=== PATIENT | female | born 1950 | race Caucasian/White ===

== ENCOUNTER 2017-02-22 14:56 | Inpatient (IN) | payer MEDICARE, MEDICAID ==
[~2017-02-22] VITALS: Ht 160 cm; Wt 74.8 kg
[2017-02-22] MEDS ORDERED: VENL75CA62 PO (15:01)
[2017-02-22] MEDS ORDERED: GABA-534 PO (15:01)
[2017-02-22] MEDS ORDERED: OLME20TA15 PO (15:01)
[2017-02-22] MEDS ORDERED: PARO30TA3 PO (15:01)
[2017-02-22] MEDS ORDERED: LORA1TAB PO (15:01)
[2017-02-22] MEDS ORDERED: OLAN7.5T3 PO (15:01)
[2017-02-22] MEDS: clonazePAM 0.5 MG TABLET PO PRN (15:44)
--- NOTE | 2017-02-22 15:47 | NUR ---
GPS RN: ADMINISTERED KLONOPIN 0.5MG FOR C/O ANXIETY
[2017-02-22 16:00] VITALS: BP 123/80
[2017-02-22] MEDS ORDERED: ACETAMINOPHEN 325 MG TABLET PO PRN (16:00)
[2017-02-22] MEDS ORDERED: MAGNESIUM HYDROXIDE 30 ML UDC PO PRN (16:00)
[2017-02-22] MEDS ORDERED: MAG HYDROX/AL HYDROX/SIMETH 30 ML UDC PO PRN (16:00)
--- NOTE | 2017-02-22 16:04 | NUR ---
GPS/RN PATIENT ADMITTED ON A 5150 HOLD FOR DTS UNDER THE CARE OF DR SIDHU AND DR PEREZ. PER HOLD PATIENT WAS VOICING SUICIDAL IDEATION STATING THAT SHE WANTED TO END HER LIFE WITH AN OVERDOSE OF MEDICATIONS. UPON FACE TO FACE ASSESSMENT PATIENT IS ALERT X 3, STABLE CONDITION, BLUNTED AFFECT, STATING THAT SHE IS VERY DEPRESSED BUT DENIES SI AT THIS TIME. PATIENT IS CALM AND COOPERATIVE WITH STAFF, NO DISTRESS NOTED, ALL NEEDS ATTENDED, WILL CONTINUE TO MONITOR Q 15 [place] FOR SAFETY AND BEHAVIOR.
[2017-02-22 16:22] VITALS: BP 109/59
[2017-02-22] MEDS: GABAPENTIN 300 MG CAPSULE PO SCH (17:14)
[2017-02-22] MEDS: VENLAFAXINE XR 75 MG CAP.SR.24H PO SCH (17:14)
--- NOTE | 2017-02-22 19:30 | NUR ---
GPS RN NOTE, RECEIVED PATIENT AWAKE, SITTING UP IN A CHAIR IN THE ACTIVITY ROOM. STABLE. PATIENT IS ALERT AND ORIENTED X 3. AMBULATORY. VERBALLY RESPONSIVE. PATIENT DENIES SUICIDE IDEATIONS AT THIS TIME. DENIES ANY PAIN OR DISCOMFORT AT THIS TIME. ALL NEEDS ATTENDED. SAFETY PRECAUTIONS OBSERVED. WILL CONTINUE TO MONITOR.
[2017-02-22 20:00] VITALS: BP 141/85
[2017-02-22] MEDS: OLANZAPINE 5 MG TABLET PO SCH (21:44)
[2017-02-23] MEDS: clonazePAM 0.5 MG TABLET PO PRN ×3 (06:00→23:14)
[2017-02-23 07:03] LABS: ALBUMIN 3.7 g/dL (3.4-5.0); BILIRUBIN,TOTAL 0.7 mg/dL (0.2-1.0); CALCIUM, SERUM 9.1 mg/dL (8.5-10.1); CREATININE 0.9 mg/dL (0.6-1.3); POTASSIUM 3.9 mmol/L (3.5-5.1); TOTAL PROTEIN, SERUM 7.3 g/dL (6.4-8.2)
[2017-02-23 08:00] VITALS: BP 127/73
[2017-02-23] MEDS: LOSARTAN POTASSIUM 25 MG TABLET PO SCH (08:22)
[2017-02-23] MEDS: PAROXETINE HCL 10 MG TABLET PO SCH (08:22)
[2017-02-23] MEDS: VENLAFAXINE XR 75 MG CAP.SR.24H PO SCH (08:22)
[2017-02-23] MEDS: GABAPENTIN 300 MG CAPSULE PO SCH ×2 (08:22→16:15)
--- NOTE | 2017-02-23 09:24 | NUR ---
BOX STACKER-NOTES DR. PEREZ SEEN THE PATIENT AND MADE AWARE OF PATIENT LABS. RESULT WITH THE ORDER TO ENCOURAGE PATIENT TO INCREASED P.O FLUID.
[2017-02-23 16:00] VITALS: BP 132/88
--- NOTE | 2017-02-23 17:10 | NUR ---
Patient lives at home alone [address] [place] [address]. [address] [place] [phone] ([phone]). Patient stated that she wanted to return home upon discharge. sheet metal worker supervisor attempted to contact patient's son ([phone]) However, he was unavailable. sheet metal worker supervisor left a voicemail with her contact information and will attempt again later. Patient will help form a safe and proper discharge plan.
--- NOTE | 2017-02-23 18:44 | NUR ---
HEALTH EDUCATION SPECIALIST-NOTS PATIENT STATED" I'M VERY ANXIOUS,I DON'T KNOW WHAT TO DO", REDIRECTED PATIENT AND OFFERED KLONOPIN AND AGREED. KLONOPIN 0.5MG P.O GIVEN PRN ORDER. WILL CONT. MONITORING FOR SAFETY.
--- NOTE | 2017-02-23 19:30 | NUR ---
RN OPENING NOTES RECEIVED REPORT FROM JACKIE MEDINA RN. FOUND Pt RESTING IN BED AWAKE. Pt IS A/OX3, AMBULATORY, & MED COMPLIANT. NO S/S OF ACUTE DISTRESS OR SOB NOTED. NO C/O PAIN. REQUESTED TO TAKE NIGHT MEDS A LITTLE EARLIER SO SHE CAN GO TO BED AND GET SOME REST. Pt ALSO REQUESTED SLEEPING PILL. SAFETY MEASURES IN PLACE. BED LOW, LOCKED, HOB ELEVATED, SIDE RAILS UP. WILL CONTINUE TO MONITOR Pt THROUGHOUT THE SHIFT FOR SAFETY.
[2017-02-23 20:00] VITALS: BP 132/85
[2017-02-23] MEDS: OLANZAPINE 5 MG TABLET PO SCH (21:27)
[2017-02-23] MEDS: TEMAZEPAM 15 MG CAPSULE PO PRN (21:27)
--- NOTE | 2017-02-23 21:30 | NUR ---
RN NOTES GAVE RESTORIL 15MG PER Pt REQUEST TO HELP HER SLEEP AT NIGHT.
[2017-02-23 22:00] VITALS: BP 132/85
--- NOTE | 2017-02-23 23:15 | NUR ---
RN NOTES ADMINISTERED PRN KLONOPIN 0.5MG PER Pt REQUEST DUE TO ANXIETY.
[2017-02-24] MEDS: clonazePAM 0.5 MG TABLET PO PRN ×3 (04:38→18:00)
--- NOTE | 2017-02-24 04:38 | NUR ---
RN NOTES ADMINISTERED PRN KLONOPIN 0.5MG PER Pt REQUEST DUE TO ANXIETY; Pt WAS HAVING TROUBLE SLEEPING.
--- NOTE | 2017-02-24 06:29 | NUR ---
RN CLOSING NOTES NO SIGNIFICANT CHANGES DURING THE NIGHT. NO S/S OF ACUTE DISTRESS OR SOB NOTED. ALL NEEDS MET AND ATTENDED TO. SAFETY MEASURES CARRIED OUT. WILL ENDORSE TO DAYSHIFT RN FOR Pt's JOBY.
[2017-02-24 08:00] VITALS: BP 119/68
[2017-02-24] MEDS: GABAPENTIN 300 MG CAPSULE PO SCH ×2 (08:09→16:17)
[2017-02-24] MEDS: PAROXETINE HCL 10 MG TABLET PO SCH (08:09)
[2017-02-24] MEDS: LOSARTAN POTASSIUM 25 MG TABLET PO SCH (08:10)
[2017-02-24] MEDS: VENLAFAXINE XR 75 MG CAP.SR.24H PO SCH (08:10)
--- NOTE | 2017-02-24 10:25 | NUR ---
GPS RN: PATIENT NOTED TO BE ANXIOUS, ASKING FOR MEDICATION TO HELP HER CALM DOWN. KLONOPIN 0.5MG ADMINISTERED PO ORDERED. VS STABLE, CONTINUE TO MONITOR.
--- NOTE | 2017-02-24 18:01 | NUR ---
GPS RN: PATIENT C/O INCREASED ANXIETY AND ASKING FOR MEDICATION TO HELP HER CALM DOWN. ADMINISTERED CLONAZEPAM 0.5MG PO ORDERED. PROVIDED WITH CALM AND SAFE ENVIRONMENT. INSTRUCTED ON RELAXATION TECHNIQUE. PATIENT VERBALIZED UNDERSTANDING, WALKING IN THE HALLWAY. NO S/S OF PHYSICAL DISTRESS, VS STABLE, CONTINUE TO MONITOR THE PATIENT.
--- NOTE | 2017-02-24 19:30 | NUR ---
GPS RN NOTE, RECEIVED PATIENT AWAKE AND IN BED, NO S/S OR COMPLAINTS OF PAIN AT THIS TIME. PATIENT IS DISPLAYING NO S/S OF APPARENT DISTRESS AT THIS TIME. PATIENT BREATHING IS UNLABORED WITH EQUAL RISE AND FALL OF THE CHEST. PATIENT IS ALERT AND ORIENTED X 3-4 ON ROOM AIR WITH A SPO2 96%. PATIENT COMPLIANT WITH MEDICATION, DEPRESSED, COOPERATIVE, PARANOID, GUARDED, ANXIOUS, AND NEEDS REORIENTATION. PATIENT DENIES SUICIDE AND HOMICIDAL IDEATIONS AT THIS TIME. PATIENT ASSISTED WITH TURNING AND REPOSITIONING Q2HR AND PRN FOR COMFORT AND CIRCULATION. PATIENT HAS NO NEEDS AT THIS TIME. PATIENT EDUCATED ON THE USE OF THE CALL WINTER. PATIENT BED SIDE RAILS UP X2 FOR SAFETY, BED IS LOCKED AND LOW WILL CONTINUE TO MONITOR AND MAINTAIN SAFETY.
[2017-02-24 20:00] VITALS: BP 120/80
[2017-02-24] MEDS: OLANZAPINE 5 MG TABLET PO SCH (21:21)
[2017-02-24] MEDS: TEMAZEPAM 15 MG CAPSULE PO PRN (22:20)
--- NOTE | 2017-02-24 22:20 | NUR ---
GPS RN NOTE, PATIENT HAS A COMPLAINT OF NOT BEING ABLE TO SLEEP AND WOULD LIKE A SLEEPING AID AT THIS TIME. PATIENT VITAL SIGNS ARE STABLE. GAVE RESTORIL 15 MG PO HS ORDERED. WILL REASSESS FOR INSOMNIA AND I WILL CONTINUE TO MONITOR THIS PATIENT.
[2017-02-25] MEDS: clonazePAM 0.5 MG TABLET PO PRN ×3 (04:35→16:46)
--- NOTE | 2017-02-25 04:35 | NUR ---
GPS RN NOTE, PATIENT HAS A COMPLAINT OF FEELING ANXIOUS AND WOULD LIKE MEDICATION AT THIS TIME. PATIENT VITAL SIGNS ARE STABLE. GAVE KLONOPIN 0.5MG PO Q4HR PRN ORDERED. WILL REASSESS FOR ANXIETY AND I WILL CONTINUE TO MONITOR THIS PATIENT.
[2017-02-25 08:00] VITALS: BP 115/80
[2017-02-25] MEDS: PAROXETINE HCL 10 MG TABLET PO SCH (08:22)
[2017-02-25] MEDS: VENLAFAXINE XR 75 MG CAP.SR.24H PO SCH (08:22)
[2017-02-25] MEDS: LOSARTAN POTASSIUM 25 MG TABLET PO SCH (08:23)
[2017-02-25] MEDS: GABAPENTIN 300 MG CAPSULE PO SCH ×2 (10:23→16:21)
--- NOTE | 2017-02-25 14:33 | NUR ---
GPS RN: ADMINISTERED MOM 30ML PO FOR C/O CONSTIPATION.
[2017-02-25 16:08] VITALS: BP 121/83
--- NOTE | 2017-02-25 16:47 | NUR ---
GPS RN: CLONAZEPAM 0.5MG PO ORDERED FOR C/O INCREASED ANXIETY. VS STABLE. CONTINUE TO MONITOR.
--- NOTE | 2017-02-25 19:00 | NUR ---
GPS RN OPENING NOTES: RECEIVED PT AWAKE AND IS WALKING AROUND INTERACTING WITH HER AM NURSE. NO S/S OR COMPLAINTS OF PAIN AT THIS TIME. PT IS DISPLAYING NO S/S OF APPARENT DISTRESS AT THIS TIME. PT BREATHING IS UNLABORED W/ EQUAL RISE AND FALL OF THE CHEST. PT IS A/O X 3 ON ROOM AIR WITH SPO2 95%. PT IS MED COMPLIANT. PT DENIES SUICIDE IDEATIONS OR HOMICIDAL IDEATIONS AT THIS TIME. PT HAS NO NEEDS AT THIS TIME. PT EDUCATED ON THE USE OF THE CALL WINTER. SIDE RAILS X2 UP FOR SAFETY. BED KEPT IN LOCKED AND LOWEST POSITION. WILL CONTINUE TO MONITOR AND MAINTAIN SAFETY.
[2017-02-25 20:46] VITALS: BP 138/80
[2017-02-25] MEDS: OLANZAPINE 5 MG TABLET PO SCH (21:12)
[2017-02-26] MEDS: TEMAZEPAM 15 MG CAPSULE PO PRN (02:39)
--- NOTE | 2017-02-26 02:39 | NUR ---
GPS RN NOTES: PT GOT OUT OF BED AND REQUESTED FOR A SLEEP AID. PT RECEIVED RESTORIL PO. WILL CONTINUE TO MONITOR PT.
[2017-02-26] MEDS: clonazePAM 0.5 MG TABLET PO PRN (06:08)
--- NOTE | 2017-02-26 06:08 | NUR ---
GPS RN NOTE: PT WALKED OUT OF ROOM AND REPORTED THAT SHE WAS HAVING ANXIETY AND WOULD LIKE HER KLONOPIN. PT RECEIVED KLONOPIN. WILL CONTINUE TO MONITOR PT.
--- NOTE | 2017-02-26 06:58 | NUR ---
GPS CLOSING NOTES: ALL NEEDS WERE ATTENDED AND ANTICIPATED FOR. PT IS IN BED ASLEEP AFTER GETTING HER KLONOPIN. CALL WINTER WITHIN REACH. BED KEPT IN LOCKED, LOWEST POSITION, AND SIDE RAILS X 2 UP. WILL ENDORSE TO AM NURSE FOR JOBY.
[2017-02-26 08:00] VITALS: BP 126/73
[2017-02-26] MEDS: PAROXETINE HCL 10 MG TABLET PO SCH (08:58)
[2017-02-26] MEDS: GABAPENTIN 300 MG CAPSULE PO SCH (08:58)
[2017-02-26] MEDS: LOSARTAN POTASSIUM 25 MG TABLET PO SCH (08:59)
[2017-02-26] MEDS: VENLAFAXINE XR 75 MG CAP.SR.24H PO SCH (08:59)
[2017-02-26] MEDS ORDERED: LITHIUM CARBONATE 150 MG CAPSULE PO SCH (10:30)
[2017-02-26 16:27] VITALS: BP 130/70
--- NOTE | 2017-02-26 16:33 | NUR ---
Discharge Note: Patient will be discharged back [address] [place] [address] ([phone]). Patient's son Joel Alford ([phone]) has been notified and will pick her up via private vehicle. Both patient and patient's son are agreeable with the discharge plan. Patient is calm and cooperative. Patient's mood and affect are appropriate. Patient denies suicidal and homicidal ideations. Patient agreed to follow-up with her psychiatrist Dr. Whittaker within 30 days. grain farmworker also referred patient to [facility] [address] [facility] [address] ([phone]). Facilitated info to IDT team who are in agreement with discharge arrangement. The multidisciplinary exitcare form was done, printed, signed, and given to the patient.
[2017-02-26] MEDS ORDERED: POLYETHYLENE GLYCOL 3350 17 GM POWD.PACK PO SCH (22:00)
--- NOTE | 2017-02-27 13:31 | NUR ---
settlement worker returned the call from patient's psychiatrist Dr. Rhonda Christopher ([phone]) However, she was unavailable social services assistant left a message with her contact information.
== END 2017-02-26 16:59 | disposition home or self-care (01) | DRG 885 ==
LOC: GPS 14:56
PROVIDERS: ADMIT Psychiatry & Neurology Psychiatry; ATTEND Internal Medicine
DX: F31.30 Bipolar disorder, current episode depressed, mild or moderate severity, unspecified (principal); I10 Essential (primary) hypertension; F41.9 Anxiety disorder, unspecified; Z79.899 Other long term (current) drug therapy; F29 Unspecified psychosis not due to a substance or known physiological condition; Z73.6 Limitation of activities due to disability
CPT/HCPCS: 36415; 80053-TC; 80061-TC; 87081-TC

== ENCOUNTER 2025-01-08 07:28 | Day surgery (SDC) | payer MEDICARE, OTHER ==
[~2025-01-08 07:28] MED LIST: GABA-534 PO; OLAN7.5T3 PO; OLME20TA13 PO; PARO30TA4 PO; VENL75CA62 PO
== END 2025-01-08 11:00 | disposition home or self-care (01) ==
LOC: DS 07:28
PROVIDERS: ATTEND Dentist Oral and Maxillofacial Surgery
DX: E11.9 Type 2 diabetes mellitus without complications (principal); Z53.8 Procedure and treatment not carried out for other reasons; Z79.85 Long-term (current) use of injectable non-insulin antidiabetic drugs; Z79.899 Other long term (current) drug therapy; Z82.49 Family history of ischemic heart disease and other diseases of the circulatory system; Z90.710 Acquired absence of both cervix and uterus; Z98.890 Other specified postprocedural states

== ENCOUNTER 2025-01-23 06:25 | Inpatient (IN) | payer MEDICARE, OTHER ==
[~2025-01-23] VITALS: Ht 160 cm; Wt 73.5 kg
[2025-01-23] MEDS ORDERED: ANESTHESIA TRAY IN PYXIS 1 EA TRAY MC ONE (07:03)
[2025-01-23] MEDS ORDERED: LIDOCAINE 2%-EPI 1:100,000 30 ML VIAL ONE (07:03)
[2025-01-23] MEDS ORDERED: VANCOMYCIN 1 GM VIAL ONE (07:04)
[2025-01-23] MEDS ORDERED: dexaMETHasone SOD PHOSPHATE 2 ML ONE (07:04)
[2025-01-23] MEDS ORDERED: ROCURONIUM BROMIDE 50 MG/5 ML ONE (07:17)
[2025-01-23] MEDS ORDERED: FENTANYL PF 250MCG/5ML AMPUL ONE (07:17)
[2025-01-23] MEDS ORDERED: SEVOFLURANE 250 ML BOTTLE IH ONE (07:34)
[2025-01-23] MEDS ORDERED: LABETALOL HCL IV 100MG VIAL ONE (07:34)
[2025-01-23 10:50] VITALS: BP 118/52; TEMP 97.4; O2SAT 95
[2025-01-23 11:05] VITALS: BP 124/58; TEMP 97.9; O2SAT 95
[2025-01-23 11:20] VITALS: BP 115/60; TEMP 97.7; O2SAT 96
[2025-01-23 11:35] VITALS: BP 120/62; TEMP 97.9; O2SAT 95
[2025-01-23 11:50] VITALS: BP 122/65; TEMP 97.5; O2SAT 97
[2025-01-23] MEDS: IV NS 0.9% 1,000 ML IV PRN (11:58)
[2025-01-23] MEDS ORDERED: ONDANSETRON HCL/PF 4 MG/2 ML VIAL IVP PRN ×2 (12:00→15:00)
[2025-01-23] MEDS ORDERED: HYDROMORPHONE 1 MG/1 ML DISP.SYRIN IV PRN (12:00)
[2025-01-23] MEDS ORDERED: ASPI-1420 PO (13:39)
[2025-01-23] MEDS ORDERED: INSU100I26 SQ (13:39)
[2025-01-23] MEDS ORDERED: LITH300C2 PO (13:39)
[2025-01-23] MEDS ORDERED: VENL150C58 PO (13:39)
[2025-01-23] MEDS ORDERED: AMLO-555 PO (13:39)
[2025-01-23] MEDS ORDERED: METF-442 PO (13:39)
[2025-01-23] MEDS ORDERED: ROSU10TA29 PO (13:39)
[2025-01-23] MEDS ORDERED: ACETAMINOPHEN 325 MG TABLET PO PRN (15:00)
[2025-01-23] MEDS: ACETAMINOPHEN 325 MG TABLET PO PRN (16:06)
[2025-01-23] MEDS: BLOOD SUGAR DIAGNOSTIC 1 EACH STRIP VI SCH (17:24)
[2025-01-23] MEDS: INSULIN REGULAR, HUMAN 100 UNIT/ML 3 ML VIAL SQ PRN (17:26)
[2025-01-23] MEDS ORDERED: DEXTROSE 50%-WATER 50 ML DISP.SYRIN IV PRN (17:30)
[2025-01-23] MEDS: VENLAFAXINE XR 75 MG CAP.SR.24H PO SCH (18:00)
[2025-01-23] MEDS: ATORVASTATIN 40 MG TABLET PO SCH (18:00)
[2025-01-23] MEDS: VANCOMYCIN 1 GM in IV D5W 250ml IV SCH (20:08)
[2025-01-23] MEDS: *INSULIN REGULAR(HUMULIN R)HUM 100 UNIT/ML VIAL SQ PRN (21:10)
[2025-01-23] MEDS: INSULIN GLARGINE, 100 UNIT/ML CARTRIDGE SQ SCH (21:12)
[2025-01-24 06:35] LABS: EOSINOPHILS % (AUTO) 0.1 % (0.0-6.0); HEMATOCRIT 33 % (33-45); HEMOGLOBIN 11.3 g/dL (11.5-14.8); LYMPHOCYTES # (AUTO) 1.1 K/uL (0.8-4.8); LYMPHOCYTES % (AUTO) 10.3 % (20.0-44.0); MEAN CORPUSCULAR HEMOGLOBIN 29 PG (26.0-33.0); MEAN CORPUSCULAR HGB CONC 35 g/dl (31.0-36.0); MEAN CORPUSCULAR VOLUME 84 fL (82-100); MONOCYTES # (AUTO) 0.8 K/uL (0.1-1.30); NEUTROPHILS # (AUTO) 8.5 K/uL (1.8-8.9); NEUTROPHILS % (AUTO) 81.6 % (43.0-81.0); PLATELET COUNT (AUTO) 166 K/uL (150-450); RED BLOOD CELL COUNT(AUTO) 3.89 MIL/uL (4.0-5.2); RED CELL DISTRIBUTION WIDTH 15.8 % (11.5-15.0); WHITE BLOOD COUNT (AUTO) 10.4 K/uL (4.3-11.0)
[2025-01-24 07:32] LABS: CALCIUM, SERUM 9.5 mg/dL (8.5-10.1); MAGNESIUM 2.1 mg/dL (1.8-2.4); PHOSPHORUS 3.4 mg/dL (2.5-4.9); POTASSIUM 4.1 mmol/L (3.5-5.1)
[2025-01-24 08:00] VITALS: BP 126/68; TEMP 98.6; O2SAT 95
[2025-01-24] MEDS: AMLODIPINE BESYLATE 5 MG TABLET PO SCH (08:18)
[2025-01-24] MEDS: VENLAFAXINE XR 75 MG CAP.SR.24H PO SCH (08:18)
[2025-01-24] MEDS: METFORMIN 500 MG TABLET PO SCH (08:18)
[2025-01-24 08:19] VITALS: BP 126/68
[2025-01-24] MEDS: LOSARTAN POTASSIUM 50 MG TABLET PO SCH (08:19)
[2025-01-24] MEDS: LITHIUM CARBONATE (300 MG CAP) 300 MG CAPSULE PO SCH (08:19)
== END 2025-01-24 15:22 | disposition home or self-care (01) | DRG 496 ==
LOC: DS 06:25 → MED 11:08 → TELE 01-24 14:58
PROVIDERS: ADMIT Nurse Practitioner Family; ATTEND Nurse Practitioner Family
PROC: 0NSV04Z Reposition Left Mandible with Internal Fixation Device, Open Approach (ICD-10-PCS; 2025-01-23)
PROC: 0NSR04Z Reposition Maxilla with Internal Fixation Device, Open Approach (ICD-10-PCS; 2025-01-23)
PROC: 0N5V0ZZ Destruction of Left Mandible, Open Approach (ICD-10-PCS; 2025-01-23)
PROC: 0NUV07Z Supplement Left Mandible with Autologous Tissue Substitute, Open Approach (ICD-10-PCS; 2025-01-23)
PROC: 0NUR07Z Supplement Maxilla with Autologous Tissue Substitute, Open Approach (ICD-10-PCS; 2025-01-23)
PROC: 09BR0ZZ Excision of Left Maxillary Sinus, Open Approach (ICD-10-PCS; 2025-01-23)
PROC: 0N5R0ZZ Destruction of Maxilla, Open Approach (ICD-10-PCS; principal; 2025-01-23 07:30)
DX: T84.69XA Infection and inflammatory reaction due to internal fixation device of other site, initial encounter (principal); S02.40DK Maxillary fracture, left side, subsequent encounter for fracture with nonunion; S02.609K Fracture of mandible, unspecified, subsequent encounter for fracture with nonunion; M27.2 Inflammatory conditions of jaws; Z90.710 Acquired absence of both cervix and uterus; I10 Essential (primary) hypertension; Z98.890 Other specified postprocedural states; E78.5 Hyperlipidemia, unspecified; E11.9 Type 2 diabetes mellitus without complications; I35.1 Nonrheumatic aortic (valve) insufficiency; X58.XXXD Exposure to other specified factors, subsequent encounter; E11.69 Type 2 diabetes mellitus with other specified complication
CPT/HCPCS: 36415; 80048-TC; 80061-TC; 82962-TC; 83735-TC; 84100-TC; 85025-TC; 87081-TC; A4223; A4338; C1713; G0378; J0690; J1100; J1200; J1815; J2704; J3010; J3370; J3490; J7030; J7050; J7060

== ENCOUNTER 2025-06-19 06:29 | Inpatient (IN) | payer MEDICARE, OTHER ==
[~2025-06-19] VITALS: Ht 154.9 cm; Wt 60.8 kg
[~2025-06-19 06:29] MED LIST changes: +AMLO-555 PO; +ASPI-1420 PO; -GABA-534 PO; +INSU100I26 SQ; +LITH300C2 PO; +METF-442 PO; -OLAN7.5T3 PO; -OLME20TA13 PO; -PARO30TA4 PO; +ROSU10TA29 PO; +VENL150C58 PO
[2025-06-19] MEDS ORDERED: ANESTHESIA TRAY IN PYXIS 1 EA TRAY MC ONE (06:56)
[2025-06-19] MEDS ORDERED: LIDOCAINE 2%-EPI 1:100,000 30 ML VIAL ONE (06:57)
[2025-06-19] MEDS ORDERED: VANCOMYCIN 1 GM VIAL ONE (06:57)
[2025-06-19] MEDS ORDERED: dexaMETHasone SOD PHOSPHATE 2 ML ONE (06:57)
[2025-06-19] MEDS ORDERED: FENTANYL PF 250MCG/5ML AMPUL ONE (07:24)
[2025-06-19] MEDS ORDERED: ROCURONIUM BROMIDE 50 MG/5 ML ONE (07:25)
[2025-06-19] MEDS ORDERED: LABETALOL HCL IV 100MG VIAL ONE (08:24)
[2025-06-19] MEDS ORDERED: ONDANSETRON HCL/PF 4 MG/2 ML VIAL ONE (09:50)
[2025-06-19] MEDS: ONDANSETRON HCL/PF 4 MG/2 ML VIAL IV ONE (09:59)
[2025-06-19] MEDS: IV NS 0.9% 1,000 ML IV PRN (11:05)
[2025-06-19] MEDS: HYDROMORPHONE 1 MG/1 ML DISP.SYRIN IV PRN (11:19)
[2025-06-19] MEDS ORDERED: ONDANSETRON HCL/PF 4 MG/2 ML VIAL IV PRN (11:30)
[2025-06-19] MEDS ORDERED: DEXTROSE 50%-WATER 50 ML DISP.SYRIN IV PRN (11:30)
[2025-06-19] MEDS ORDERED: REPA2TAB10 PO (11:48)
[2025-06-19] MEDS ORDERED: MOUNJARO SQ (11:48)
[2025-06-19] MEDS ORDERED: RISP0.5T65 PO (11:48)
[2025-06-19] MEDS: BLOOD SUGAR DIAGNOSTIC 1 EACH STRIP IN SCH (12:12)
[2025-06-19] MEDS: INSULIN REGULAR, HUMAN 100 UNIT/ML 3 ML VIAL SQ PRN (12:15)
[2025-06-19] MEDS: ACETAMINOPHEN 325 MG TABLET PO PRN (17:13)
[2025-06-19 20:00] VITALS: BP 137/66; TEMP 97.9; O2SAT 98
[2025-06-19] MEDS: VANCOMYCIN 1 GM in IV D5W 250ml IV SCH (20:04)
[2025-06-20 07:30] VITALS: BP 107/44; TEMP 98.4; O2SAT 99
[2025-06-20 07:38] LABS: PLATELET COUNT (AUTO) 173 K/uL (150-450); RED BLOOD CELL COUNT(AUTO) 3.61 MIL/uL (4.0-5.2); RED CELL DISTRIBUTION WIDTH 12.9 % (11.5-15.0); WHITE BLOOD COUNT (AUTO) 10.8 K/uL (4.3-11.0)
[2025-06-20 08:23] VITALS: TEMP 98.2
[2025-06-20 08:47] LABS: CALCIUM, SERUM 9.5 mg/dL (8.5-10.1); CREATININE 1.1 mg/dL (0.6-1.3); PHOSPHORUS 3.0 mg/dL (2.5-4.9); SODIUM SERUM 138.0 mmol/L (136-145); UREA NITROGEN, BLOOD 23.0 mg/dL (7-18)
== END 2025-06-20 11:00 | disposition home or self-care (01) | DRG 908 ==
LOC: DS 06:29 → MED 10:50
PROVIDERS: ADMIT Nurse Practitioner Family; ATTEND Nurse Practitioner Family
PROC: 0N5R0ZZ Destruction of Maxilla, Open Approach (ICD-10-PCS; 2025-06-19)
PROC: 0NSR04Z Reposition Maxilla with Internal Fixation Device, Open Approach (ICD-10-PCS; 2025-06-19)
PROC: 0N5V0ZZ Destruction of Left Mandible, Open Approach (ICD-10-PCS; 2025-06-19)
PROC: 0N5T0ZZ Destruction of Right Mandible, Open Approach (ICD-10-PCS; 2025-06-19)
PROC: 0NUR07Z Supplement Maxilla with Autologous Tissue Substitute, Open Approach (ICD-10-PCS; 2025-06-19)
PROC: 09UQ07Z Supplement Right Maxillary Sinus with Autologous Tissue Substitute, Open Approach (ICD-10-PCS; 2025-06-19)
PROC: 0NPW04Z Removal of Internal Fixation Device from Facial Bone, Open Approach (ICD-10-PCS; principal; 2025-06-19 07:30)
DX: T86.831 Bone graft failure (principal); M87.9 Osteonecrosis, unspecified; S02.40CK Maxillary fracture, right side, subsequent encounter for fracture with nonunion; T84.69XA Infection and inflammatory reaction due to internal fixation device of other site, initial encounter; S02.40DK Maxillary fracture, left side, subsequent encounter for fracture with nonunion; Y92.9 Unspecified place or not applicable; E11.9 Type 2 diabetes mellitus without complications; E78.5 Hyperlipidemia, unspecified; I10 Essential (primary) hypertension; K58.9 Irritable bowel syndrome, unspecified; Z90.710 Acquired absence of both cervix and uterus; Z79.84 Long term (current) use of oral hypoglycemic drugs; Z79.82 Long term (current) use of aspirin; Z79.899 Other long term (current) drug therapy; D16.5 Benign neoplasm of lower jaw bone; D16.4 Benign neoplasm of bones of skull and face; M60.9 Myositis, unspecified; J32.0 Chronic maxillary sinusitis; Y83.2 Surgical operation with anastomosis, bypass or graft as the cause of abnormal reaction of the patient, or of later complication, without mention of misadventure at the time of the procedure; X58.XXXD Exposure to other specified factors, subsequent encounter; L13.9 Bullous disorder, unspecified
CPT/HCPCS: 36415; 80048-TC; 82962-TC; 83735-TC; 84100-TC; 85025-TC; 88300-TC; 88305-TC; 88311-TC; A4223; A4338; C1713; G0378; J0461; J0690; J1100; J1171; J1815; J2405; J2704; J3010; J3373; J3490; J7030; J7060